=== PATIENT | female | born 1930 | race African-American/Black ===

== ENCOUNTER 2017-09-23 01:48 | Emergency (ER) | payer OTHER ==
[~2017-09-23] VITALS: Ht 162.6 cm; Wt 64.0 kg
[2017-09-23 03:47] LABS: BASOPHILS % 0.5 % (0.0-2.0); EOSINOPHILS % 1.5 % (0.0-5.0); HEMATOCRIT. 34.7 % (36.0-48.0); HEMOGLOBIN. 11.7 g/dL (12.0-16.0); LYMPHOCYTES % 17.7 % (20.0-50.0); MEAN CORPUSCULAR VOLUME 94.5 fL (81.0-99.0); MEAN PLATELET VOLUME 6.8 fl (7.4-10.4); MONOCYTES % 10.4 % (2.0-8.0); NEUTROPHILS % 69.9 % (40.0-76.0); PLATELET 266 x1000/uL (130-400); RED BLOOD CELL COUNT 3.67 mill/uL (4.2-5.4); RED CELL DISTRIBUTION WIDTH 13.3 % (11.6-14.6)
[2017-09-23 03:49] LABS: CHLORIDE 103 mEq/L (98-107)
[2017-09-23 03:52] LABS: PROTHROMBIN TIME 9.9 sec (9.4-11.6)
[2017-09-23 03:54] LABS: ETHANOL BLOOD < 10 mg/dL
[2017-09-23 03:58] LABS: CREATINE KINASE 42 IU/L (26-192)
[2017-09-23] MEDS ORDERED: ACETAMINOPHEN 325MG TABLET PO ONE (05:45)
[2017-09-23] MEDS ORDERED: HYDROCHLOROTHIAZIDE 25MG TABLET PO ONE (06:30)
[2017-09-23 07:01] VITALS: BP 177/75
== END 2017-09-23 07:08 | disposition short-term general hospital (02) ==
LOC: ER 01:48 → EDBEDREQ 02:35 → ER 07:08 → CANBEDREQ 07:20
DX: R55 Syncope and collapse (principal); S42.92XA Fracture of left shoulder girdle, part unspecified, initial encounter for closed fracture; W01.198A Fall on same level from slipping, tripping and stumbling with subsequent striking against other object, initial encounter; Y93.89 Activity, other specified; Y92.89 Other specified places as the place of occurrence of the external cause; E11.9 Type 2 diabetes mellitus without complications; I10 Essential (primary) hypertension
CPT/HCPCS: 29105; 36415; 70450; 71045; 72125; 73030; 80053; 82550; 83690; 83880; 84484; 85025; 85610; 99285; G0482; A4565; L3670